=== PATIENT | male | born 1980 | race Native Hawaiian/Other Pacific Islander ===

== ENCOUNTER 2017-07-22 16:15 | Emergency (ER) | payer OTHER ==
[~2017-07-22] VITALS: Ht 175.3 cm; Wt 90.4 kg
[2017-07-22] MEDS ORDERED: QUET300T PO (16:25)
[2017-07-22] MEDS ORDERED: TRILEPTAL300 MG PO (16:25)
[2017-07-22] MEDS ORDERED: HALO50IN4 IM (16:26)
[2017-07-22] MEDS ORDERED: CELEXA40 MG PO (16:27)
[2017-07-22] MEDS ORDERED: TRILEPTAL150 MG PO (16:27)
[2017-07-22 17:55] LABS: PLATELET COUNT 365 K/uL (142-355)
[2017-07-22 18:01] LABS: POTASSIUM 4.1 mmol/L (3.6-5.2)
[2017-07-22 22:10] VITALS: BP 141/90; TEMP 98.3
== END 2017-07-22 22:12 | disposition home or self-care (01) ==
LOC: ED 16:15
PROVIDERS: Specialist
DX: R55 Syncope and collapse (principal)
CPT/HCPCS: 36415; 80053; 80183; 80307; 80342; 81000; 82550; 82553; 84484; 85027; 85379; 93005; 96360; 99284; G0431

== ENCOUNTER 2017-08-03 14:03 | Emergency (ER) | payer OTHER ==
[~2017-08-03] VITALS: Ht 167.6 cm; Wt 59.0 kg
[~2017-08-03 14:03] MED LIST: CELEXA40 MG PO; HALO50IN4 IM; QUET300T PO; TRILEPTAL150 MG PO; TRILEPTAL300 MG PO
[2017-08-03 14:20] VITALS: TEMP 99.5
[2017-08-03 16:38] VITALS: BP 121/70
== END 2017-08-03 17:53 | disposition short-term general hospital (02) ==
LOC: ED 14:03
DX: S02.92XA Unspecified fracture of facial bones, initial encounter for closed fracture (principal); S02.32XA Fracture of orbital floor, left side, initial encounter for closed fracture; Y04.0XXA Assault by unarmed brawl or fight, initial encounter; Y92.149 Unspecified place in prison as the place of occurrence of the external cause
CPT/HCPCS: 96374; 96375; 99284; J2270; J2405

== ENCOUNTER 2017-09-28 22:09 | Emergency (ER) | payer OTHER ==
[~2017-09-28] VITALS: Ht 175.3 cm; Wt 90.7 kg
[2017-09-28 23:19] LABS: PLATELET COUNT 455 K/uL (142-355)
[2017-09-28 23:25] LABS: POTASSIUM 3.5 mmol/L (3.6-5.2)
[2017-09-29 00:26] VITALS: BP 124/51; TEMP 98.6
== END 2017-09-29 00:29 ==
LOC: ED 22:09
DX: I95.89 Other hypotension (principal); R42 Dizziness and giddiness; R55 Syncope and collapse; D72.828 Other elevated white blood cell count; E86.0 Dehydration
CPT/HCPCS: 80053; 85027; 96361; 96365; 96374; 99284; J0696; J2405